=== PATIENT | female | born 2005 | race Caucasian/White ===

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

== ENCOUNTER 2024-01-21 15:55 | Observation (INO) | payer OTHER, SELFPAY ==
--- NOTE | ~2024-01-21 | US_ITS ---
US pelvic complete Ordering provider: Krista Kang PA-C History: . RLQ pain, R ovarian cyst, r/o torsion . Comparison: None. Technique: Transabdominal ultrasound of the pelvis (Doppler ultrasound interrogation techniques used as needed for this exam.) FINDINGS: CERVIX: Normal. UTERUS: Measures 6.7x 4.2x 3.9 cm in length which is within normal limits and is anteverted. No myom etrial masses. ENDOMETRIUM: Normal in thickness measuring 3 mm. No endometrial masses, cysts or fluid. CUL DE SAC: No free fluid. RIGHT OVARY: Normal in size measuring 2.7x 1.7x 1.8 cm. Normal echotexture. Doppler vascular flow pre sent. LEFT OVARY: Not visualized. Minimal fluid is seen around the right ovary. ADNEXA: Normal. No mass. IMPRESSION: Minimal fluid around the right ovary. Nonvisualization of the left ovary. Otherwise, normal pelvic ul trasound. Reviewed, dictated and finalized at location A. IMPRESSION: Minimal fluid around the right ovary. Nonvisualization of the left ovary. Other moran, normal pelvic ultrasound.
--- NOTE | ~2024-01-21 | CT_ITS ---
EXAMINATION: CT abdomen pelvis w con DATE: 01/21/2024 17:24 INDICATION: Right lower quadrant abdominal pain TECHNIQUE: Computed tomography (CT) of the abdomen and pelvis was performed with 100 mL Omnipaque-350 intravenous contrast. Automated exposure control and iterative reconstruction technique were employe d. The dose-length product was 417.02 mGy-cm. COMPARISON: None FINDINGS: Lung bases are clear. Heart size normal. No pericardial or pleural effusion. Liver, gallbladder, sple en, pancreas, bilateral adrenal glands and kidneys are normal. The fluid-filled appendix is dilated t o 9 mm diameter but without evident para appendiceal comparison to more specifically suggest acute ap pendicitis. No bowel obstruction. Bladder, uterus and left adnexa are unremarkable. There is suggesti on of a 2.6 x 1.6 cm peripherally enhancing partially collapsed likely corpus luteum cyst at the righ t ovary. Small amount of free fluid in the cul-de-sac and about the right ovary which could be either physiologic or related to cyst rupture. No abscess or free intraperitoneal gas. No pathologically en larged abdominal or pelvic lymphadenopathy. Mild thoracolumbar levocurvature IMPRESSION: 1. Appendix dilated which raises some concern for acute appendicitis however there is no periappendic eal inflammatory stranding to more specifically suggest this. 2. Likely 2.6 x 1.6 cm peripherally enhancing partially collapsed right ovarian corpus luteum cyst wi th small amount of free fluid in the deep pelvis which could be either physiologic or related to cyst rupture. Reviewed, dictated and finalized at location A. IMPRESSION: 1. Appendix dilated which raises some concern for acute appendicitis however th ere is no periappendiceal inflammatory stranding to more specifically suggest t his. 2. Likely 2.6 x 1.6 cm peripherally enhancing partially collapsed right ovarian corpus luteum cyst with small amount of free fluid in the deep pelvis which co uld be either physiologic or related to cyst rupture.
[2024-01-21 15:57] VITALS: BP 118/60; PULSE 84; RESP 15; TEMP 36.7; O2SAT 100
[2024-01-21 16:44] LABS: Basophils Percent Auto 0.2 % (0.2-1.2); Eosinophils Percent Auto 0.3 % (0-4.4); Hematocrit 41.2 % (37.0-47.0); Hemoglobin 14.6 g/dL (12.0-15.0); Immature Granulocyte Absolute 0.04 K/mm3 (0.00-0.031); Immature Granulocyte Percent A 0.3 % (0-0.5); Lymphocytes Absolute Auto 1.35 K/mm3 (0.9-3.2); Lymphocytes Percent Auto 10.3 % (18.3-44.2); Mean Corpuscular HGB Conc 35.4 g/dl (32-36); Mean Corpuscular Hemoglobin 32.8 pg (26-34); Mean Corpuscular Volume 92.6 fl (80-100); Mean Platelet Volume 10.9 fl (7.4-10.4); Monocytes Absolute Auto 0.8 K/mm3 (0.1-0.6); Neutrophils Absolute Auto 10.9 K/mm3 (1.3-6.7); Neutrophils Percent Auto 82.9 % (45.5-73.1); Platelet Count Result 163 k/mm3 (150-375); Red Blood Count 4.45 M/mm3 (4.2-5.4); Red Cell Distribution Width 12.6 % (11.5-14.5); White Blood Count 13.1 K/mm3 (4.5-10.0)
[2024-01-21 16:47] LABS: Add Urine Microscopic? NO; Appearance Urine Clear (Clear); Bilirubin Urine Negative (Negative); Blood Urine Negative (Negative); Color Urine Yellow (Yellow); Glucose Urine UA Negative (Negative); Ketones Urine 3+ mg/dL (Negative); Leukocyte Esterase Ur Negative LEU/UL (Negative); Nitrate Urine Negative (Negative); Protein Urine Negative (Negative); Specific Grav Ur 1.028 (1.001-1.035); pH Urine 5.5 (5.0-9.0)
--- NOTE | 2024-01-21 16:50 | ED.ABDPAIN ---
HPI - Abdominal Pain General Chief Complaint: Abdominal Pain Stated Complaint: abd pain poss appendicitis Time Seen by Provider: 01/21/24 16:17 Source: patient Mode of arrival: ambulatory Limitations: no limitations History of Present Illness HPI narrative: patient is a 18-year-old female who presents the ED with report of right lower abdominal pain. Patient reports pain began 2 days ago. Has been constant and worsening today, which prompted her to go to [facility]. She was then referred here for further evaluation to rule out appendicitis. Patient has not taken anything for pain. Reports nausea, denies vomiting, diarrhea, constipation, fevers, dysuria, hematuria. Denies hx of ovarian cyst. Related Data Allergies Allergy/AdvReac Type Severity Reaction Status Date / Time amoxicillin Allergy Hives Verified 01/21/24 15:56 cephalexin Allergy Hives Verified 01/21/24 15:56 Penicillins Allergy Hives Verified 01/21/24 15:56 Review of Systems Review of Systems: All systems reviewed & are unremarkable except as noted in HPI. All systems reviewed & are unremarkable except as noted in HPI and below Exam Narrative: GENERAL: Well appearing, well-nourished, non-toxic, in no acute distress. HEAD: Normocephalic, atraumatic. RESPIRATORY: Airway patent, respirations nonlabored. Clear to auscultation bilaterally, no rales, rhonchi, wheezing. CARDIOVASCULAR: Regular rate and rhythm without murmurs, rubs, or gallops. ABDOMINAL: Soft, focal tenderness in RLQ, no rebound. No significant Rovsing sign. Nondistended. Normoactive BS. MUSCULOSKELETAL: Moves all extremities. No gross deformities. SKIN: Warm, dry, normal color. NEURO: A&O X3. Speech clear. PSYCHIATRIC: Appropriate mood and affect. Normal interaction. Course Vital Signs Vital signs: Vital Signs Temperature 98.1 F 01/21/24 15:57 Pulse Rate 84 01/21/24 15:57 Respiratory Rate 15 01/21/24 15:57 Blood Pressure 118/60 01/21/24 15:57 Pulse Oximetry 100 01/21/24 15:57 Oxygen Delivery Room Air 01/21/24 15:57 Temperature 98.1 F 01/21/24 15:57 Pulse Rate 84 01/21/24 15:57 Respiratory Rate 15 01/21/24 15:57 Blood Pressure 118/60 01/21/24 15:57 Pulse Oximetry 100 01/21/24 15:57 Oxygen Delivery Room Air 01/21/24 15:57 MDM - Abdominal Pain MDM Narrative Medical decision making narrative: Patient presented to ED with 2 day history of right lower quadrant abdominal pain, worsening today. [facility] ED [facility] to rule out appendicitis. Vital signs are stable. Patient afebrile. Cbc with white blood cell count of 13.1. Neutrophil predominance. No bandemia. CMP unremarkable, total bili mildly elevated to 2, but otherwise normal LFTs/lipase. UA with at 3+ ketones, no signs of infection. Fluids ongoing. CT scan of abdomen / pelvis was obtained, showing a dilated appendix to 9 mm, however no periappendiceal inflammation/stranding. Does however also show right-sided ovarian cyst with possible rupture. Will obtain ultrasound to further evaluate. Pelvic US obtained and w/o concerning findings, does show minimal fluid around R ovary. No comment on ovarian cysts. Good blood flow to both ovaries. Discussed imaging results with Dr. Carlton, radiology, advised may not have been able to see findings on CT on the US based on its location. CT still consistent with partially collapsed cyst. Discussed case with Dr. Kirk, gen surgery, advised patient can stay overnight for obs, repeat labs in the am, NPO after midnight in case of surgery. Otherwise can d/c home with pain medication, return if pain worsens. Discussed these options with patient. She would prefer to stay overnight to be sure she does not need surgery. Does not feel comfortable going home at this point. Patient admitted under Dr. Kirk. Prn pain medications ordered. Will start abx. Medical Records Attestation: I reviewed the patient's medical record
[2024-01-21 16:53] LABS: Alanine Aminotransferase 12 U/L (6-35); Albumin Level 4.5 g/dL (3.5-5.1); Alkaline Phosphatase 58 U/L (38-126); Anion Gap 11 mmol/L (4-12); Aspartate Amino Transferase 23 U/L (14-36); Blood Urea Nitrogen 13 mg/dL (7-17); Calcium 9.1 mg/dL (8.4-10.2); Carbon Dioxide 22 mmol/L (22-30); Chloride 100 mmol/L (98-107); Estimated CRCL calculation 123 ml/min; Estimated Glomerular Filt Rate > 60; Glucose 82 mg/dL (65-110); Lipase 39 U/L (23-300); Potassium 3.4 mmol/L (3.4-5.0); Sodium 133 mmol/L (137-145)
[2024-01-21] MEDS: SODIUM CHLORIDE 0.9% IV 1,000 ML 999 ML IV CONT (16:58)
[2024-01-21] MEDS: ACETAMINOPHEN 500 MG TABLET 1000 MG PO ×2 (16:58→21:02)
[2024-01-21] MEDS: metroNIDAZOLE 500 MG/ISO 100ML 500 MG/100 ML BAG 100 MG IVPB (19:11)
[2024-01-21] MEDS: levoFLOXacin 750 MG/D5W 150 ML 750 MG/150 ML BAG 100 MG IVPB (19:39)
[2024-01-21 20:00] VITALS: BP 118/55; PULSE 81; RESP 17; TEMP 36.5; O2SAT 100; BMI 28.3
--- NOTE | 2024-01-21 23:30 | ADMGEN ---
This patient, Neelima Pastrana, was admitted to Medical Room 240-. Patient/family oriented to hospital policies and general routines including ID bracelet, bed and alarms, visiting hours, pain management, procedures, bathroom and other care routines, personal items, smoking policy, room service/diet, and visiting hours. Information on how to activate the Rapid Response Team has been discussed. Patient/Family are encouraged to report perceived risks to care and to ask questions if they do not understand what they are told or what they should do.
[2024-01-22] VITALS (10 sets, daily range): BP systolic 103–129; BP diastolic 54–78; PULSE 77–115; RESP 14–18; TEMP 36.3–37; O2SAT 98–100
[2024-01-22 05:46] LABS: Basophils Percent Auto 0.2 % (0.2-1.2); Eosinophils Percent Auto 0.5 % (0-4.4); Hematocrit 41.8 % (37.0-47.0); Hemoglobin 14.2 g/dL (12.0-15.0); Immature Granulocyte Absolute 0.03 K/mm3 (0.00-0.031); Immature Granulocyte Percent A 0.3 % (0-0.5); Lymphocytes Absolute Auto 1.63 K/mm3 (0.9-3.2); Lymphocytes Percent Auto 18.4 % (18.3-44.2); Mean Corpuscular Volume 94.1 fl (80-100); Mean Platelet Volume 11.6 fl (7.4-10.4); Monocytes Absolute Auto 0.7 K/mm3 (0.1-0.6); Monocytes Percent Auto 8.1 % (2.6-8.5); Neutrophils Absolute Auto 6.4 K/mm3 (1.3-6.7); Neutrophils Percent Auto 72.5 % (45.5-73.1); Platelet Count Result 145 k/mm3 (150-375); Red Blood Count 4.44 M/mm3 (4.2-5.4); Red Cell Distribution Width 12.4 % (11.5-14.5); White Blood Count 8.9 K/mm3 (4.5-10.0)
[2024-01-22] MEDS: metroNIDAZOLE 500 MG/ISO 100ML 500 MG/100 ML BAG 100 MG IVPB ×2 (05:47→13:38)
[2024-01-22 06:05] LABS: Anion Gap 10 mmol/L (4-12); Blood Urea Nitrogen 8 mg/dL (7-17); Calcium 9.2 mg/dL (8.4-10.2); Carbon Dioxide 22 mmol/L (22-30); Chloride 103 mmol/L (98-107); Estimated CRCL calculation 121 ml/min; Estimated Glomerular Filt Rate > 60; Glucose 71 mg/dL (65-110); Potassium 3.4 mmol/L (3.4-5.0); Sodium 135 mmol/L (137-145)
--- NOTE | 2024-01-22 10:14 | PM.IMHP ---
H&P: HPI History of Present Illness Date/Time: 01/22/24 10:14 Chief Complaint: Abdominal pain Narrative: This is a 18-year-old woman who presented to the ED for abdominal pain x2 days. She initially noticed cramping and bloating in her upper abdomen 2 days ago. She at first thought she was constipated. Yesterday, her abdominal pain migrated to the right lower quadrant and became more severe. Denies any other associated symptoms. Her persistent pain prompted her to come into the ED for evaluation. The ED, vital signs were stable and she was afebrile. [place] [address] scan of the abdomen and pelvis showed a mildly dilated appendix to 9 mm with no periappendiceal inflammatory stranding. Could be early appendicitis. Also noted on CT was evidence of likely a partially collapsed right ovarian cyst stool with small amount of free fluid in the pelvis that could be due to a ruptured ovarian cyst or physiologic fluid. Pelvic ultrasound showed minimal fluid around the right ovary, nonvisualization of the left ovary. She was admitted for observation and surgical evaluation. She has been started on IV Levaquin and metronidazole due to her penicillin allergy. She reports today her constant pain has improved, but she remains tender in the right lower quadrant with any movement, walking, or bending. Her white blood cell count is down to 9000. No previous abdominal surgeries or significant medical history. Review of Systems Review of Systems: All systems reviewed & are unremarkable except as noted in HPI and below [facility] Family History Family History (Updated 01/21/24 @ 19:41 by Betty Lou RN) Grandparent Myocardial infarct Hypothyroid Diabetes mellitus Bleeding disorder Social History Social History Smoking status: Never smoker Do You Feel Safe in your Home?: Yes Lack of Transportation: No Lack of Food: Never True Current Housing: I Have Housing Concerned About Future Housing: No Difficulty Paying Gas/Electric Bills: No Difficulty Paying for Meds: No Currently Unemployed: No Education: High School Diploma/GED Difficulty w/ Childcare or Family Care: No Spiritual care concerns: No Meds Home Medications and Allergies Home Medications Medication Instructions Recorded Confirmed Type No Home Medications 01/21/24 01/21/24 History Allergies Allergy/AdvReac Type Severity Reaction Status Date / Time amoxicillin Allergy Hives Verified 01/21/24 19:28 cephalexin Allergy Hives Verified 01/21/24 19:28 Penicillins Allergy Hives Verified 01/21/24 19:28 Vital Signs Vital Signs - 24 hr 01/21/24 15:57 01/21/24 20:00 01/22/24 04:30 Temperature 98.1 F 97.7 F 98.6 F Pulse Rate 84 81 88 Respiratory Rate 15 17 17 Blood Pressure 118/60 118/55 L 116/59 L Pulse Oximetry 100 100 100 Oxygen Delivery Room Air 01/22/24 08:00 Temperature Pulse Rate Respiratory Rate Blood Pressure Pulse Oximetry Oxygen Delivery Room Air Exam Const: General: comfortable and no acute distress Nutritional Appearance: average body habitus Orientation/consciousness: patient oriented x3 HENMT: Head: normocephalic and atraumatic Ears: hearing grossly normal bilaterally Mouth: Yes moist mucous membranes Eyes: General: appearance normal, both eyes and all related structures Pupils: Equal, round and reactive pupils present Neck: Neck: normal visual inspection and full ROM Resp: Effort & Inspection: no respiratory distress Auscultation: clear to auscultation bilaterally Cardio: Rate: regular rate Rhythm: regular rhythm Heart sounds: S1 normal heart sound present and S2 normal heart sound present Peripheral pulses: Peripheral pulses 2+ throughout GI: Inspection: non-distended and no scars GI Palp: Yes Soft to palpation, Yes Tenderness to palpation present (GI) (RLQ, pain in RLQ with palpation of LLQ), Yes
[2024-01-22 11:26] LABS: Beta HCG Quantitative < 2.39 mIU/ML
--- NOTE | 2024-01-22 12:56 | WPDHPUPDATE1 ---
History and Physical Update Update Date/Time: 01/22/24 12:56 History and Physical has been reviewed, including an updated exam of the patient. There are NO changes in the patient's condition. Risks, benefits, and alternatives have been discussed and questions answered. Patient agrees to proceed with procedure.
[2024-01-22] MEDS: LACTATED RINGERS 1,000 ML 30 ML IV CONT ×2 (13:20→15:06)
--- NOTE | 2024-01-22 14:21 | WPDANESEPPF ---
Anes - Initial Pre Proc Eval Procedure: Operation Date: 01/22/24 14:00 Proposed Procedures p Laparoscopic Appendectomy - Barbara Kirk MD Date/Time: 01/22/24 14:21 Surgeon: Barbara Kirk MD Pre Op Diagnosis: Appendiceal dilation, RLQ Pain Patient Data Age: 18 Gender: F Height: 1.6 m Weight: 72.5 kg Last Vital Signs Temp 98.6 F 01/22/24 04:30 Pulse 88 01/22/24 04:30 Resp 17 01/22/24 04:30 BP 116/59 L 01/22/24 04:30 Pulse Ox 100 01/22/24 04:30 O2 Del Method Room Air 01/22/24 08:00 Allergies Allergy/AdvReac Type Severity Reaction Status Date / Time amoxicillin Allergy Hives Verified 01/22/24 13:41 cephalexin Allergy Hives Verified 01/22/24 13:41 Penicillins Allergy Hives Verified 01/22/24 13:41 Home Medications Medication Instructions Recorded Confirmed Type hydrocodone 5 mg-acetaminophen 325 1 tablet PO Q6H PRN pain #20 tabs 01/22/24 Rx mg tablet Laboratory Tests 01/21/24 01/22/24 16:38 04:56 WBC 13.1 H K/mm3 8.9 K/mm3 (4.5-10.0) (4.5-10.0) RBC 4.45 M/mm3 4.44 M/mm3 (4.2-5.4) (4.2-5.4) Hgb 14.6 g/dL 14.2 g/dL (12.0-15.0) (12.0-15.0) Hct 41.2 % 41.8 % (37.0-47.0) (37.0-47.0) MCV 92.6 fl 94.1 fl (80-100) (80-100) MCH 32.8 pg 32.0 pg (26-34) (26-34) MCHC 35.4 g/dl 34.0 g/dl (32-36) (32-36) RDW 12.6 % 12.4 % (11.5-14.5) (11.5-14.5) Plt Count 163 k/mm3 145 L k/mm3 (150-375) (150-375) MPV 10.9 H fl 11.6 H fl (7.4-10.4) (7.4-10.4) Immature Gran % (Auto) 0.3 % 0.3 % (0-0.5) (0-0.5) Neut % (Auto) 82.9 H % 72.5 % (45.5-73.1) (45.5-73.1) Lymph % (Auto) 10.3 L % 18.4 % (18.3-44.2) (18.3-44.2) Murray % (Auto) 6.0 % 8.1 % (2.6-8.5) (2.6-8.5) Eos % (Auto) 0.3 % 0.5 % (0-4.4) (0-4.4) Baso % (Auto) 0.2 % 0.2 % (0.2-1.2) (0.2-1.2) Lymph # (Auto) 1.35 K/mm3 1.63 K/mm3 (0.9-3.2) (0.9-3.2) Murray # (Auto) 0.8 H K/mm3 0.7 H K/mm3 (0.1-0.6) (0.1-0.6) Eos # (Auto) 0.0 K/mm3 0.0 K/mm3 (0-0.3) (0-0.3) Baso # (Auto) 0.0 K/mm3 0.0 K/mm3 (0.0-0.1) (0.0-0.1) Abs Immat Gran (auto) 0.04 H K/mm3 0.03 K/mm3 (0.00-0.031) (0.00-0.031) Absolute Neuts (auto) 10.9 H K/mm3 6.4 K/mm3 (1.3-6.7) (1.3-6.7) Absolute Nucleated RBC 0.000 K/mm3 0.000 K/mm3 (0.0-0.012) (0.0-0.012) Nucleated RBC % 0.0 % 0.0 % (0.0-0.2) (0.0-0.2) Sodium 133 L mmol/L 135 L mmol/L (137-145) (137-145) Potassium 3.4 mmol/L 3.4 mmol/L (3.4-5.0) (3.4-5.0) Chloride 100 mmol/L 103 mmol/L (98-107) (98-107) Carbon Dioxide 22 mmol/L 22 mmol/L (22-30) (22-30) Anion Gap 11 mmol/L 10 mmol/L (4-12) (4-12) BUN 13 mg/dL 8 D mg/dL (7-17) (7-17) Creatinine 0.60 L mg/dL 0.60 L mg/dL (0.7-1.0) (0.7-1.0) Estim Creat Clear Calc 123 ml/min 121 ml/min Estimated GFR > 60 > 60 (59 - ) (59 - ) Glucose 82 mg/dL 71 mg/dL (65-110) (65-110) Calcium 9.1 mg/dL 9.2 mg/dL (8.4-10.2) (8.4-10.2) Total Bilirubin 2.0 H mg/dL (0.2-1.3) AST 23 U/L (14-36) ALT 12 U/L (6-35) Alkaline Phosphatase 58 U/L (38-126) Total Protein 7.0 g/dL (6.3-8.2) Albumin 4.5 g/dL (3.5-5.1) Lipase 39 U/L (23-300) Beta HCG, Quant < 2.39 mIU/ML Urine Color Yellow (Yellow) Urine Appearance Clear (Clear) Urine pH 5.5 (5.0-9.0) Ur Specific Craig 1.028 (1.001-1.035) Urine Protein Negative mg/dL (Negative) Urine Glucose (UA) Negative mg/dL (Negative) Urine Ketones 3+ H mg/dL (Negative) Ur Blood (Man) Negative (Negative) Urine Nitrate Negative (Negative) Urine Bilirubin Negative (Negative) Urine Urobilinogen 1.0 mg/dL (<2.0) Leukocyte Esterase Rfl Negative MONIQUE/UL (Negative) Blood Type O Positive Antibody S
[2024-01-22] MEDS: BUPIVACAINE/EPINEPHRINE 0.5% 50 ML VIAL 30 ML INFILTRATE (14:45)
--- NOTE | 2024-01-22 15:01 | W.PM.PROC2 ---
Procedure Note - Detailed Date of Procedure 01/22/24 Pre-op Diagnosis acute appendicitis Post-op Diagnosis Same Procedure Performed laparoscopic appendectomy Surgeon Barbara Kirk MD Anesthesia General Indications 18-year-old female presenting to the emergency department complaining of right lower quadrant abdominal pain. Workup, including imaging, consistent with early acute appendicitis. Findings acute appendicitis no evidence of perforation Description of Procedure The patient was taken to the operating room and placed in the supine position. After adequate induction of general anesthesia, the patient was prepped and draped in the normal sterile fashion. A time-out was then done to verify the patient's identity, as well as the procedure being performed. I began by making a 5 mm incision in the infraumbilical region, through this a Veress needle was placed in the peritoneal cavity. CO2 gas was then insufflated and after adequate pneumoperitoneum was achieved the Veress needle was removed. Then placed a 5 mm Optiview trocar under direct visualization into the peritoneal cavity. I then insufflated through this trocar site and the endoscope was placed into the trocar. Under direct visualization, placed 2 further 5 mm suprapubic port as well as an additional 12 mm port in the left lower abdomen. At this point identified the cecum, I retracted the cecum both medially and superiorly allowing me to expose the appendix. The appendix was noted to be dilated and inflamed. I then was able to locate the base of the appendix with the cecum. I created a window with the [place] dissector between the appendix itself and the mesoappendix. I then transected the mesoappendix with a white vascular staple load. The Endo-MARIE was then reloaded with a blue staple load and I transected the base of the appendix. Once the specimen was completely detached, an endo-pouch was placed into the 12 mm port site and the specimen was removed through the endo-pouch. The appendiceal specimen will be sent to pathology for further review. I then copiously irrigated the right lower quadrant. There was noted to be some free fluid in the pelvis that was suctioned away. The right ovary looked to be largely unremarkable. Hemostasis was noted at both staple lines no other pathology was seen in this area. I then moved the camera to the suprapubic port to check our its port of entry. No iatrogenic injury or other pathology was noted in the upper abdomen. I then closed the 12 mm port site with a Lee code and 0 Vicryl suture under direct visualization. At this point, the abdomen was desufflated and all ports were removed. All port sites were closed with 4 Monocryl subcuticular suture. Dermabond was placed on all wounds. The patient tolerated the procedure well and was extubated in the operating room postop. She will be sent to the recovery room in stable condition. Estimated Blood Loss 5 Drains No Packing No Pathology Yes Complications No immediate complications Condition Stable Disposition PACU [facility] Billing Surgery - Charge Forward: Surgery Billing
[2024-01-22] MEDS: fentaNYL CITRATE INJ (*CRX) 100 MCG/2 ML VIAL 25 MCG IV PUSH ×5 (15:21→16:09)
[2024-01-22] MEDS: ACETAMINOPHEN 500 MG TABLET 1000 MG PO (18:17)
--- NOTE | 2024-01-23 08:30 | PM.DS ---
DS: Admitting Diagnosis Discharge Date 01/22/24 Admitting Diagnosis Acute appendicitis DS: Discharge Diagnosis Discharge Diagnosis (1) Acute appendicitis with localized peritonitis, without perforation or abscess: Code(s): K35.30 - Acute appendicitis with localized peritonitis, without perforation or gangrene Status: Acute Assessment and Plan: status post appendectomy, doing well, home with routine postoperative care and p.o. analgesia, follow-up 2 weeks DS: Summary Hospital Course Reason for hospitalization: acute appendicitis Hospital Course: The patient is a 18-year-old female presenting to the emergency department complaining of right lower quadrant abdominal pain. Workup, including imaging, was significant acute appendicitis. Given these findings, the patient was admitted to surgical service. She was made NPO and started on IV antibiotics. Upon evaluation, the decision was made to proceed with urgent appendectomy. The patient was taken to the operating room and laparoscopic appendectomy was performed. Please see full operative report for details of that procedure. Postoperatively, the patient did well and was transferred back to the surgical floor. She was able to tolerate a diet and her pain was well controlled with p.o. analgesia. She was up and ambulating without difficulty. At this time she will be sent home with routine postoperative instructions and p.o. analgesia, as well as Colace. She will follow-up me in 2 weeks. Status at Discharge Functional status at discharge: independent ambulation Overall status at discharge: patient is progressing back to baseline Time Spent with Patient Time attestation: Total time spent providing and/or coordinating discharge services: Time spent: Less than 30 minutes Exam Const: General: cooperative, comfortable and no acute distress Resp: Auscultation: clear to auscultation bilaterally Cardio: Rate: regular rate Rhythm: regular rhythm GI: Inspection: normal to inspection, distended and incision GI Palp: Yes abdominal tenderness and Yes Soft to palpation DS: Data Data Completed and Pending Pending studies at discharge: Pending at discharge 01/22/24 14:56 Surgical [PTH] Routine Labs on day of discharge: Labs from last 24 hours 01/22/24 04:56 Beta HCG, Quant < 2.39 Discharge Plan Discharge Attending physician on discharge: Barbara Kirk Consulting providers: Cristhian Salazar; Judie Ware; Derek Carlton; Olayinka Mendez; Khari Echeverria Discharging Clinician: Barbara Kirk Patient Disposition: Home, Self-Care Activity: as tolerated Diet: as tolerated Wound Care Instructions: incision open to air Discharge Instructions: DISCHARGE INSTRUCTION SHEET FOR HERNIA, GALLBLADDER AND APPENDIX SURGERIES DR. KIRK PATIENT TO TAKE HOME 1. May shower in 24 hours, no soaking in bath x 2weeks. 2. Call office for: Wound increasingly painful or bleeding Vomiting Fever of greater than 101 degrees 3. If no bowel movement for three days, take 1 oz. (30 ml) Milk of Magnesia or MiraLax 17g 1 to 2 times daily. 4. No heavy lifting > 10-15 pounds x 6 weeks for hernia repairs and 2 weeks for laparoscopic cholecystectomy or appendectomy. 5. No driving for 3 days or while taking narcotic pain medications. 6. Ice to surgical site for 48 hours (30 min on, then 30 min off). 7. Up walking 10-30 minutes three times per day. 8. Resume previous home medications. 9. Follow-up 10-14 days in office for wound check or as previously scheduled. ([phone]) 10. Oral pain medications prescription to be sent to pharmacy. Take Tylenol 500mg every 6 hours and Ibuprofen 600mg every 6 hours for the first 2 days, then as needed. 11. NUTRITION: Start out by drinking fluids and increase your diet as tolerated. If you experience nausea, try dry toast,
== END 2024-01-22 18:43 | disposition home or self-care (01) ==
LOC: ANHED 19:02 → ANH2MED 19:44
PROVIDERS: Anesthesiology; Admitting Provider Surgery; Emergency Provider Physician Assistant; Visit Provider Surgery
PROC: 0DTJ4ZZ Resection of Appendix, Percutaneous Endoscopic Approach (ICD-10-PCS; CPT 44970; principal; 2024-01-22 14:00)
DX: K35.80 Unspecified acute appendicitis (principal); N83.11 Corpus luteum cyst of right ovary; R93.5 Abnormal findings on diagnostic imaging of other abdominal regions, including retroperitoneum
CPT/HCPCS: 44970; 36415; 74177; 76856; 80048; 80053; 81003; 83690; 84702; 85025; 86850; 86900; 86901; 88304; 96361; 96365; 96366; 96367; 99285; A9270; G0378; J1100; J1836; J1956; J2250; J2405; J2704; J3010; J7030; J7120; Q9967

== ENCOUNTER 2025-01-03 11:44 | Emergency (ER) | payer OTHER, SELFPAY ==
--- OUTSIDE RECORDS SUMMARY | 2020-01-13 09:00 | XMS_ITS | Continuity of Care Document ---
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 Name Role Phone Marycruz Linarse Unavailable Unavailable Allergies, Adverse Reactions, Alerts Substance Reaction Status Criticality No Known Allergies Active No Inform ation Medications Medication Instructions Dosage Effective Dates (start - stop) Status Comments Sprintec (28) 0.25 mg-35 mcg tablet take 1 tablet by oral route every day 1.00 tablet - Active Procedures Procedure Date VISUAL ACUITY SCREEN OFFICE/OUTPATIENT VISIT, EST TOBACCO NON-USER SYST BP LT 130 MM HG Sys bp less 140 DIAST BP < 80 MM HG Perez bp less 90 WEIGHT RECORDED BODY MASS INDEX DOCD Sealant Per Tooth Sealant Per Tooth Sealant Per Tooth Sealant Per Tooth Sealant Per Tooth Prophylaxis Child Topical Application Of Flouride 016 Prophylaxis Child Topical Fluoride Varnish; Therapeutic Ap plication Periodic Oral Evaluation Established Patient Bitewings Two Films Unable To Treat Non-Billable Services Limit Oral Eval-prob Focused Intraoral Periapical First Darrell 11 Advance Directives Directive Yes / No Effective Date File Name No Information Encounters Encounter Description Practice Location Reason(s) For Visit Diagnoses Date Provider Providers Copied on Encounter OFFICE/OUTPA TIENT VISIT, EST [facility], [address], [place], [place], [address], tel:[phone] [facility] sports physical (chief complaint) Sports physicalFamily planning 0 Linares Marycruz. [address] [place], [address], [place]. tel:[phone] Referring Provider: Marycruz Linares, [address], [place], [facility]. tel:[phone] [facility], [address], [place], [place], [address], tel:[phone] [facility] Dental sealant status 6 Jannet Kessler. [address], [place], [place], [address], [place]. tel:[phone] Referring Provider: Checo Garcia, [address], [place], [address] . tel:[phone] [facility], [address], [place], [place], [address], tel:[phone] [facility] DEN-Disturbance s in tooth formation 6 Jannet Kessler. [address], [place], [place], [address], [place]. tel:[phone] Referring Provider: Checo Garcia, [address], [place], [address] . tel:[phone] [facility], [address], [place], [place], [address], tel:[phone] [facility] DEN-Deposits [accretions] on teeth 6 Jannet Kessler. [address], [place], [place], [address], [place]. tel:[phone] Referring Provider: Checo Garcia, [address], [place], [address] . tel:[phone] [facility] [facility], [address], [place], [place], [address], tel:[phone] [facility] DEN-Deposits [accretions] on teeth 5 Jannet Kessler. [address], [place], [place], [address], [place]. tel:[phone] Referring Provider: Checo Garcia, [address], [place], [address] . tel:[phone] [facility] [facility], [address], [place], [place], [address], tel:[phone] [facility] DEN-Encounter for dental exam and cleaning w abnormal findings 5 Jannet Kessler. [address], [place], [place], [address], [place]. tel:[phone] Referring Provider: Checo Garcia, [address], [place], [address] . tel:[phone] [facility] [facility], [address], [place], [place], [address], [place] tel:[phone] [facility] Dental examination 0 Rafita Claudio. [address], [place], [place], [address], [place]. tel:[phone] Referring Provider: Shanon Nelson, [address], [place], [address] . tel:[phone] [facility] [facility], [address], [place], [place], [address], tel:[phone] [facility] Dental examination b0 1 No Information Family History Family Member Type Diagnosis Age At Onset No Information Payers Payer name Insurance type Covered constitution party ID Scot akins(s) [facility] [id number] Social History Type Description Quantity Date Captured Comments Alcohol Use Details No Caffeine Use Details soda > 32oz per day Tobacco Use Status Current non-smoker Smoking Status Never smoker Non-Smoking Tobacco Use Details : No Details Available : No Details Available Sex Female Vital Signs Date / Time: Height Weight BMI Pulse Rate Blood Pressure Temperature Respiratory Rate Body Surface Area Head Circumference Head Circ. Percentile Wt./Lux. Percentile BMI percentile Pulse Ox Inhaled Ox 2:44 PM 63.00 in 66.224 kg (146.00 lbs) 25.8 6 kg/m eter (2) 102 /min 100/70 mm[Hg] 97.80 F 18 /min 87 98 % 21 % Chief Complaint And Reason For Visit From encounter dated '01/13/2020 14:00'. needs sports physical (chief complaint) Reason For Referral Reason For Referral No Information History Of Present Illness Encounter Date Complaint History Of Prese nt Illness needs sports physical needs sports physical (comments) has no problems states she plays sports every year. She denies being sexually active but is wanting to try control pill she does not want the shot because she has heard it makes you gain weight. Functional Status Date Functional Assessmen t Pain Score 0/10 Instructions Date Instruction Additional Infor meagan Exam done and form c ompleted Age related routine screening and safety reviewed. Related to Sports physical Medication instructi ons were provided to the patient. The risks, benefits and side effects of treatment were discussed with the patient. The patient verbalized an understanding of all instructions. Related to Family planning Assessments Type Assessment Date assessment Sports physical assessment Family planning Patient Care Teams Name Effective Dates (start - stop) Status Members No Information
--- OUTSIDE RECORDS SUMMARY | 2020-01-13 09:00 | XMS_ITS | Continuity of Care Document ---
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 [address] [place], [address], [place]. tel:[phone] Referring Provider: Marycruz Linares, [address] [place], [place], [facility]. tel:[phone] [facility], [address], [place], [place], [address], tel:[phone] [facility] Dental sealant status 6 Jannet Kessler. [address], [place], [place], [address], [place]. tel:[phone] Referring Provider: Checo Garcia, [address], [place], [address] . tel:[phone] [facility], [address], [place], [place], [address], tel:[phone] [facility] DEN-Disturbance s in tooth formation 6 Jannet Kessler. [address], [place], [place], [address], [place]. tel:[phone] Referring Provider: Checo Garcia, [address], [place], [address] . tel:[phone] [facility], [address], [place], [place], [address], tel:[phone] [facility] DEN-Deposits [accretions] on teeth 6 Jannet Kessler. [address], [place], [place], [address], [place]. tel:[phone] Referring Provider: Checo Garcia, [address], [place], [address] . tel:[phone] [facility] [employer] [facility], [address], [place], [place], [address], tel:[phone] [facility] DEN-Deposits [accretions] on teeth 5 Jannet Kessler. [address], [place], [place], [address], [place]. tel:[phone] Referring Provider: Checo Garcia, [address], [place], [address] . tel:[phone] [facility] [facility], [address], [place], [place], [address], tel:[phone] [facility] DEN-Encounter for dental exam and cleaning w abnormal findings 5 Jannet Kessler. [address], [place], [place], [address], [place]. tel:[phone] Referring Provider: Checo Garcia, [address], [place], [address] . tel:[phone] [facility] [employer] [facility], [address], [place], [place], [address], [place] tel:[phone] [facility] Dental examination 0 Rafita Claudio. [address], [place], [place], [address], [place]. tel:[phone] Referring Provider: Shanon Nelson, [address], [place], [address] . tel:[phone] [facility] [facility], [address], [place], [place], [address], tel:[phone] [facility] Dental examination b0 1 No Information Family History Family Member Type Diagnosis Age At Onset No Information Payers Payer name Insurance type Covered green party ID Scot akins(s) [facility] [id number] Social History Type Description Quantity Date Captured [...]
--- OUTSIDE RECORDS SUMMARY | 2025-01-02 16:15 | XMS_ITS | Encounter Summary ---
Author Organization [facility] Healthcare Address [address] [place] [address] Care Team Providers Care Mailer Name Role Phone Unknown, Notinfile Primary Care Provider Unavail able Reason for Visit * Reason Comments Sore Throat X 3 days, hurts on t he right side, of her throat, headaches on and off, Encounter Details Date Type Department Care Team (Late st Contact Info) Description 01/02/2025 4:15 PM CDT Office Visit [facility] at [address] [phone] Temitope Preston, PHYSIOLOGIST [address] [place] [address] [address] [place], [place] [id number] Exudative pharyngitis (Primary Dx) Social History Tobacco Use Types Packs/Day Years Used Date Smoking Tobacco: Never Assessed Comments Unknown Sex and Gender Information Value Date Recorded Sex Assigned at Not on file Legal Sex Female 3:44 PM CDT Gender Identity Not on file Sexual Orientation Not on file documented as of this encounter Last Filed Vital Signs Vital Sign Reading Time Taken Comments Blood Pressure 116/73 01/02/2025 4:27 PM CDT Pulse 95 01/02/2025 4:27 PM CDT Temperature 36.8 C (98.3 F) 01/02/2025 4:27 PM CDT Respiratory Rate 16 01/02/2025 4:27 PM CDT Oxygen Saturation 98% 01/02/2025 4:27 PM CDT Inhaled Oxygen Concentration - - Weight 76.2 kg (168 lb) 01/02/2025 4:27 PM CDT Height 160 cm (5' 3) 01/02/2025 4:27 PM CDT Body Mass Index 29.76 01/02/2025 4:27 PM CDT documented in this encounter Patient Instructions * Patient Instructions* Temitope Preston, PHYSIOLOGIST - 01/02/2025 4:15 PM CDT If you have no improvement or worsening of your symptoms, please follow up with your Primary Care Provider, [facility] and or Emergency Room. I strive to provide you with EXCELLENT service. You may receive a survey after your visit today. If you cannot rate your experience as EXCELLENT, please let us know how we can improve and better meet your needs. Thank you for choosing [facility]! It was my pleasure to see you today, I hope you feel better soon! Temitope Preston LOGISTICIAN You have tested negative for strep on rapid testing A Culture may have been sent to the lab- if positive, antibiotics will be ordered. Pharyngitis: A sore throat can be caused by an infection from a virus or bacteria. Sore throat can also be caused by postnasal drip, allergies, and exposure to smoke. The provider will sometimes test the throat with a swab looking for strep bacteria (???strep throat?? ). A sore throat caused by strep will require treatment with an antibiotic. Even if children start feeling better in 24 to 48 hours, complete the entire antibiotic duration recommended by your provider. A viral sore throat lasts up to 5 days and cannot be treated by antibiotics. Another type of sore throat virus, infectious mononucleosis (???mono?? ), can last for 3 weeks in older children. The germs that cause these infections are contagious and can be spread by coughing or sharing drinks or utensils. Medication Recommendations: Give acetaminophen (Tylenol) or ibuprofen (Motrin, Advil) for fever or pain. If post nasal drip, add Zyrtec/Claritin & Flonase. Home Recommendations: Stay hydrated Ice cream/popsicles to improve eating/drinking. This is cold, is soothing, and tastes good. Some patients prefer warm liquids such as soups or broths. Warm salt water gargles for throat irritation 3-4 times a day. Do not share food, drinks, or utensils Frequent hand washing. Follow up with your PCP if you are not getting better. Go to ER if you develop: Drooling or difficulty swallowing occurs. Stiff or swollen neck occurs. Difficulty breathing occurs. Prescribed medicines can't be taken. Rash or swelling occurs after starting use of a new medicine. Fever lasts for more than 2 days. If your voice becomes muffled. Dehydration or decreased Urine Output, very dry mouth or no tears when crying. You may return to work, daycare, or school 24 hours after you are fever free without fever reducingmedications (Tylenol/Motrin). * Attachments The following attachments cannot be sent through Care Everywhere. * Pharyngitis (AfterCare(R) Instructions(ER/ED)) (Greek) documented in this encounter Ordered Prescriptions Prescription Sig Dispense Quantity Refills Last Filled Start Date End Date lidocaine viscous (XYLOCAINE) 2 % solutionIndication s:Exudative pharyngitis Apply 10 mL to the mouth or throat every 6 (six) hours as needed (sore throat) May mix with 30 ml of Mylanta 100 mL 01/02/2025 azithromycin (ZITHROMAX) 250 mg tabletIndications: Exudative pharyngitis Take 2 tabs (500 mg) by mouth today, than 1 tab (250 mg) daily for 4 days. 6 tablet 01/02/2025 5 documented in this encounter Progress Notes * Temitope Preston NP - 01/02/2025 4:15 PM CDT Images from the original note were not included. Subjective/Objective Patient ID: Neelima Pastrana is a 19 y.o. female. This patient has verbally consented to recording this visit in order to utilize AI technology in generating this note. Chief Complaint Sore Throat (X 3 days, hurts on the right side, of her throat, headaches on and off, ) History of Present Illness Neelima Pastrana is a 19 year old female who presents with a sore throat and headache. She has had a sore throat for three days, primarily affecting the right tonsil, with intermittent headaches. There is no fever. She experiences a sensation of a blocked ear, which she associates withher tonsil issue. She has not been exposed to anyone who is sick and has no known exposure to mononucleosis. Her medical history includes allergies to amoxicillin, penicillin, and Keflex. Azithromycin causes chest discomfort, and she is unsure of other antibiotics she has tolerated well in the past. Review of Systems All other systems reviewed and are negative. Physical Exam HEENT: Ears normal. Tonsils with exudate and erythema. Physical Exam Constitutional: Appearance: Normal appearance. She is normal weight. She is not ill-appearing. HENT: Head: Normocephalic. Right Ear: Tympanic membrane, ear canal and external ear normal. Left Ear: Tympanic membrane, ear canal and external ear normal. Nose: Nose normal. Mouth/Throat: Mouth: Mucous membranes are moist. Pharynx: Posterior oropharyngeal erythema present. Tonsils: Tonsillar exudate present. 1+ on the right. 1+ on the left. Eyes: Pupils: Pupils are equal, round, and reactive to light. Cardiovascular: Rate and Rhythm: Normal rate and regular rhythm. Pulses: Normal pulses. Heart sounds: Normal heart sounds. Pulmonary: Effort: Pulmonary effort is normal. Breath sounds: Normal breath sounds. Musculoskeletal: General: Normal range of motion. Cervical back: Normal range of motion. Skin: General: Skin is warm and dry. Capillary Refill: Capillary refill takes less than 2 seconds. Neurological: General: No focal deficit present. Mental Status: She is alert and oriented to person, place, and time. Mental status is at baseline. Psychiatric: Mood and Affect: Mood normal. Behavior: Behavior normal. Thought Content: Thought content normal. Judgment: Judgment normal. Vitals: 01/02/25 1627 BP: 116/73 Pulse: 95 Resp: 16 Temp: 36.8 ??C (98.3 ??F) SpO2: 98% Weight: 76.2 kg (168 lb) Height: 160 cm (5' 3) No results found. No past medical history on file. Current Outpatient Medications: azithromycin (ZITHROMAX) 250 mg tablet, Take 2 tabs (500 mg) by mouth today, than 1 tab (250 mg) daily for 4 days., Disp: 6 tablet, Rfl: 0 lidocaine viscous (XYLOCAINE) 2 % solution, Apply 10 mL to the mouth or throat every 6 (six) hours as needed (sore throat) May mix with 30 ml of Mylanta, Disp: 100 mL, Rfl: 0 Allergies Allergen Reactions Amoxicillin Hives Cephalexin Rash Penicillins Rash Social History Tobacco Use Smoking status: Not on file Smokeless tobacco: Not on file Substance and Sexual Activity Drug use: Not on file Sexual activity: Not on file Alcohol Use: Not At Risk (10/14/2023) Received from [facility] Alcohol Use Frequency of Alcohol Consumption: Not on file Average Number of Drinks: Not on file Frequency of Binge Drinking: Not on file Alcohol Use Status: No Average alcohol consumption: Not on file No past surgical history on file. Procedures Assessment/Plan Results Recent Results (from the past 4 hours) POCT rapid strep A Collection Time: 01/02/25 4:28 PM Result Value Ref Range Rapid Strep A, POC Negative Negative Assessment & Plan Acute pharyngitis Acute pharyngitis with high suspicion for streptococcal infection despite negative rapid strep test. Bacterial etiology suspected based on Centor criteria. - Send throat culture to confirm bacterial infection. - Prescribe azithromycin (Z-Richard) due to allergy to amoxicillin, penicillin, and cephalexin. - Prescribe viscous lidocaine for throat pain, recommend mixing with Mylanta. - Provide work note for absence. Diagnoses and all orders for this visit: Exudative pharyngitis (Primary) - POCT rapid strep A - azithromycin (ZITHROMAX) 250 mg tablet; Take 2 tabs (500 mg) by mouth today, than 1 tab (250 mg) daily for 4 days. - Throat culture Throat; Future - lidocaine viscous (XYLOCAINE) 2 % solution; Apply 10 mL to the mouth or throat every 6 (six) hours as needed (sore throat) May mix with 30 ml of Mylanta 1710- Patient called back reporting she is concerned that Azithromycin has given her chest pain before. Discussed risks of C.diff with patient regarding Clindamycin. Patient will hold the Azithromycin until throat culture returns. Disposition Treatment plan including expectations, follow up, and return precautions discussed with patient/parent, verbalizes understanding. Medication dosage, use, and potential adverse reactions discussed with patient/parent. Advised to follow up with PCP if symptoms do not resolve as expected or sooner if condition worsens. Signs/symptoms warranting ER evaluation reviewed. Patient and/or guardian was given an opportunity to ask questions, questions answered. Temitope Preston NP documented in this encounter Plan of Treatment Pending Results Name Type Priority Associated Diagnoses Date /Time Throat culture Throat Microbiology Routine Exudative pharyngitis 01/02/2025 7:15 PM CDT Scheduled Orders Name Type Priority Associated Diagnoses Orde r Schedule Throat culture Throat Microbiology Routine Exudative pharyngitis Expected: 01/02/2025, Expires: 01/02/2026 documented as of this encounter Procedures Procedure Name Priority Date/Time Associated Diagnosis Comments POCT RAPID STREP Routine 01/02/2025 4:28 PM CDT Exudative pharyngitis documented in this encounter Results * POCT rapid strep A (01/02/2025 4:28 PM CDT) Rapid Strep A, POC Negative Negative Swab 01/02/2025 4:28 PM CDT Temitope Preston NP POINT OF CARE TEST ORDERAB LES Final Result documented in this encounter Visit Diagnoses Diagnosis Exudative pharyngitis- Primary documented in this encounter Care Teams Mailer Relationship Specialty Start Date End Date Unknown, Notinfile PCP - General 10/07/23 documented as of this encounter
--- OUTSIDE RECORDS SUMMARY | 2025-01-02 16:15 | XMS_ITS | Encounter Summary ---
Author Organization [facility] Healthcare Address [address] [place] [address] Care Team Providers Care Doctor Osteopathic Name Role Phone Unknown, Notinfile Primary Care Provider Unavail able Reason for Visit * Reason Comments Sore Throat X 3 days, hurts on t he right side, of her throat, headaches on and off, Encounter Details Date Type Department Care Team (Late st Contact Info) Description 01/02/2025 4:15 PM CDT Office Visit [facility] at [address] [phone] Temitope Preston, LANDING SIGNAL OFFICER [address] [place] [address] [address] [place], [place] [id number] Exudative pharyngitis (Primary Dx) Social History Tobacco [...] Patient Instructions * Patient Instructions* Temitope Preston, LANDING SIGNAL OFFICER - 01/02/2025 4:15 PM CDT If you have no improvement or worsening of your symptoms, please follow up with your Primary Care Provider, [facility] and or Emergency Room. I strive to provide you with EXCELLENT service. You may receive a survey after your visit today. If you cannot rate your experience as EXCELLENT, please let us know how we can improve and better meet your needs. Thank you for choosing [facility]! It was my pleasure to see you today, I hope you feel better soon! Temitope Preston PERSONAL FINANCIAL ADVISOR You have tested negative for strep on [...] through Care Everywhere. * Pharyngitis (AfterCare(R) Instructions(ER/ED)) (Urdu) documented in this encounter Ordered Prescriptions Prescription [...] Use: Not At Risk (10/14/2023) Received from [facility] Alcohol Use Frequency of Alcohol Consumption: Not [...] Primary documented in this encounter Care Teams Doctor Osteopathic Relationship Specialty Start Date End Date Unknown, Notinfile PCP - General 10/07/23 documented as of this encounter
--- OUTSIDE RECORDS SUMMARY | 2025-01-02 19:15 | XMS_ITS | Encounter Summary ---
Author Organization [facility] Healthcare Address [address] [place] [id number] Care Team Providers Care Relationship Counselor Name Role Phone Unknown, Notinfile Primary Care Provider Unavail able Encounter Details Date Type Department Care Team (Latest Contact Info) Description 01/02/2025 7:15 PM CDT - 01/02/2025 11:59 PM CDT Hospital Encounter [address] [address] Exudative pharyngitis Discharge Disposition: Discharge to home or self care Social History Tobacco Use Types Packs/Day Years Used Date Smoking Tobacco: Never Assessed Comments Unknown Sex and Gender Information Value Date Recorded Sex Assigned at Not on file Legal Sex Female 3:44 PM CDT Gender Identity Not on file Sexual Orientation Not on file documented as of this encounter Medications at Time of Discharge azithromycin (ZITHROMAX) 250 mg tabletIndications :Exudative pharyngitis Take 2 tabs (500 mg) by mouth today, than 1 tab (250 mg) daily for 4 days. 6 tablet 01/02/2025 01/07/2025 lidocaine viscous (XYLOCAINE) 2 % solutionIndicatio ns:Exudative pharyngitis Apply 10 mL to the mouth or throat every 6 (six) hours as needed (sore throat) May mix with 30 ml of Mylanta 100 mL 01/02/2025 documented as of this encounter Discharge Disposition Disposition Code Departure Means Destination Discharge to home or self care documented in this encounter Plan of Treatment Pending Results Name Type Priority Associated Diagnoses Date /Time Throat culture Throat Microbiology Routine Exudative pharyngitis 01/02/2025 7:15 PM CDT Scheduled Orders Name Type Priority Associated Diagnoses Orde r Schedule Throat culture Throat Microbiology Routine Exudative pharyngitis Once for 1 Occurrences starting 01/02/2025 until 01/02/2025 documented as of this encounter Visit Diagnoses Diagnosis Exudative pharyngitis documented in this encounter Care Teams Relationship Counselor Relationship Specialty Start Date End Date Unknown, Notinfile PCP - General 10/07/23 documented as of this encounter
--- OUTSIDE RECORDS SUMMARY | 2025-01-02 19:15 | XMS_ITS | Encounter Summary ---
Author Organization [facility] Healthcare Address [address] [place] [id number] Care Team Providers Care School Principal Name Role Phone Unknown, Notinfile Primary Care Provider Unavail able Encounter Details Date Type Department Care Team (Latest Contact Info) Description 01/02/2025 7:15 PM CDT - 01/02/2025 11:59 PM CDT Hospital Encounter [address] [address] Exudative pharyngitis Discharge Disposition: Discharge to home [...] pharyngitis documented in this encounter Care Teams School Principal Relationship Specialty Start Date End Date Unknown, Notinfile PCP - General 10/07/23 documented as of this encounter
--- OUTSIDE RECORDS SUMMARY | 2025-01-03 11:45 | XMS_ITS | Clinical Summary ---
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 6 tablet 01/02/2025 01/08/20 25 Active lidocaine viscous (XYLOCAINE) 2 % solutionIndicati ons:Exudative pharyngitis Apply 10 mL to the mouth or throat every 6 (six) hours as needed (sore throat) May mix with 30 ml of Mylanta 100 mL 01/02/2025 Active Active Problems No known active problems Encounters Date Type Department Care Team Description 01/02/2025 7:15 PM CDT - 01/02/2025 11:59 PM CDT Hospital Encounter [address] [address] Exudative pharyngitis Discharge Disposition: Discharge to home or self care 01/02/2025 4:15 PM CDT Office Visit [facility] at [address] [phone] Temitope Preston NP Exudative pharyngitis (Primary Dx) from Last 3 Months Social History Tobacco Use Types Packs/Day Years Used Date Smoking Tobacco: Never Assessed Comments Unknown Sex and Gender Information Value Date Recorded Sex Assigned at Not on file Legal Sex Female 3:44 PM CDT Gender Identity Not on file Sexual Orientation Not on file Last Filed Vital Signs Vital Sign Reading [...] Mass Index 29.76 01/02/2025 4:27 PM CDT Plan of Treatment Health Maintenance Due Date Last Done Comments Cervical Cancer Screening 2003 Depression Screening 2003 Hepatitis C Screening 2003 Meningococcal B Vaccine (1 o f 2 - Standard) 2019 Regular Well Visit/Exam 18-64 2021 DTaP/Tdap/Td Vaccine (7 - Td or Tdap) 12/02/2024 12/02/2014, 08/13/2008, 04/26/2004, Additional history exists Influenza Vaccine (#1) 2024 Hepatitis B Screening Completed 04/26/2004 , 2003, 2003 Pneumococcal vaccine <65 Completed 005, 2003, 2003 Varicella Vaccines Completed 08/13/2008, 04/26/2004 HPV Vaccines Completed 12/23/2018, 12/02/2014 Meningococcal Vaccine Completed 02/18/2021, 015 Procedures Procedure Name Priority Date/Time Associated Diagnosis Comments POCT RAPID STREP Routine 01/02/2025 4:28 PM CDT Exudative pharyngitis from Last 3 Months Results * POCT rapid strep A (01/02/2025 4:28 PM CDT) Rapid Strep A, POC Negative Negative Swab 01/02/2025 4:28 PM CDT Temitope Preston NP POINT OF CARE TEST ORDERAB LES Final Result from Last 3 Months Insurance [facility] Care Teams Die Sinking Machine Operator Relationship Specialty Start Date End Date Unknown, Notinfile PCP - General 10/07/23
[2025-01-03 11:57] VITALS: BP 109/66; PULSE 73; RESP 16; TEMP 37.2; O2SAT 99
--- OUTSIDE RECORDS SUMMARY | 2025-01-03 14:15 | XMS_ITS | Clinical Summary ---
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 Equinus deformity of both feet 02/27/2018 Pain in both feet 02/27/2018 Pes cavus 02/27/2018 Plantar fasciitis 02/27/2018 Immunizations Immunization Administration Dates Next Due DTaP 08/13/2008, 4,2003,05/21,2003 HPV, 9-Valent 12/23/2018,12/02/2014 Hepatitis B, Ped/Adolescent 04/26/2004, 4,2003 HiB 04/26/2004,2003,2003 IPV 08/13/2008, 5,06/14/2004,05/21,2003 MMR 08/13/2008,04/26/2004 Meningococcal Conjugate MCV4 P (Menactra) 02/18/2021,12/02/2014 Pneumococcal Conjugate PCV7 06/14/2004, 4,2003 Tdap 12/02/2014 Varicella (Chickenpox) 08/13/2008,04/26/2004 Family History Medical History Relation Name Comments High Blood Pressure Mother Thyroid Disease Mother Relation Name Status Comments Mother Social History Tobacco Use Types Packs/Day Years Used Date Smoking Tobacco: Never Smokeless Tobacco: Never Tobacco Cessation:Counseling Given: No Alcohol Use Standard Drinks/Week Comments No 0 (1 standard drink = 0.6 oz pur e alcohol) Alcohol Use Answer Date Recorded Frequency of Alcohol Consumption Not on file 10/14/2023 Average Number of Drinks Not on file 024 Frequency of Binge Drinking Not on file 09/28 Alcohol Use Status No 10/14/2023 Average alcohol consumption Not on file 09/28 Comments No Sex and Gender Information Value Date Recorded Sex Assigned at Not on file Legal Sex Female 11:27 AM CDT Gender Identity Not on file Sexual Orientation Not on file Last Filed Vital Signs Vital Sign Reading Time Taken Comments Blood Pressure 107/70 11/23/2021 11:54 PM CDT Pulse 78 11/23/2021 11:54 PM CDT Temperature 36.2 C (97.2 F) 11/23/2021 11:54 PM CDT Respiratory Rate 18 11/23/2021 11:54 PM CDT Oxygen Saturation 99% 11/23/2021 11:54 PM CDT Inhaled Oxygen Concentration - - Weight 68.5 kg (151 lb) 11/23/2021 10:52 PM CDT Height 160 cm (5' 3) 11/23/2021 10:52 PM CDT Body Mass Index 26.75 11/23/2021 10:52 PM CDT Plan of Treatment Health Maintenance Due Date Last Done Comments HIV Screening 2003 Hepatitis C Screening ages 18 to 79 once 2003 DEPRESSION SCREENING 2015 Meningococcal B Vaccine (1 of 2 - Standard) 2019 YEARLY WELLNESS EXAM 12/24/2019 12/23/2018, 02/13/2018, 12/02/2014 COVID-19 Immunization ( season) 2023 CERVICAL CANCER SCREENING 01/24/2024 Influenza Vaccine 11/28/2024 ADULT TETANUS 12/02/2024 12/02/2014 DTaP/Tdap/Td Vaccines (7 - Td or Tdap) 12/02/2024 12/02/2014, 08/13/2008, 04/26/2004, Additional history exists Zoster Vaccine (Recombinant Vaccine) (1 of 2) 2053 HEPATITIS B VACCINES Completed 04/26/2004, 2003, 2003 HIB VACCINES Completed 04/26/2004, 05/01, 2003 Pneumococcal Vaccine: Peds to 50 & At-Risk Patients Aged Out 06/14/2004, 2003, 2003 No longer eligible based on patient's age to complete this topic IPV VACCINES Completed 08/13/2008, 07/29, 06/14/2004, Additional history exists MMR VACCINES Completed 08/13/2008, 04/26/2004 Varicella Vaccine Completed 08/13/2008, 04/26/2004 HPV VACCINES Completed 12/23/2018, 12/02/2014 MENINGOCOCCAL VACCINE Completed 02/18/2021, 015 HEPATITIS A VACCINES Aged Out No long er eligible based on patient's age to complete this topic ROTAVIRUS VACCINES Aged Out No longer eligible based on patient's age to complete this topic Insurance [facility] Return [employer] [facility] Return [employer] Care Teams Insurance Claims Clerk Relationship Specialty Start Date End Date Gino Brown MD [address] [place] [address] PCP - General Family Medicine 12/02/14
--- OUTSIDE RECORDS SUMMARY | 2025-01-03 14:15 | XMS_ITS | Clinical Summary ---
Author Organization [address] Address [address] [place] [phone] Care Team Providers Care Funeral Service Manager Name Role Phone Unknown, Notinfile Primary Care [...] - 01/02/2025 11:59 PM CDT Hospital Encounter [address] [place] [address] [address] Exudative pharyngitis Discharge Disposition: Discharge to home or self care 01/02/2025 4:15 PM CDT Office Visit [facility] at [address] [phone] Temitope Preston NP Exudative pharyngitis [...] Final Result from Last 3 Months Insurance [facility] Care Teams Funeral Service Manager Relationship Specialty Start Date End Date Unknown, Notinfile PCP - General 10/07/23
--- NOTE | 2025-01-03 14:21 | ED.ALLEREA ---
HPI - Allergic Reaction General Chief complaint: Allergic Reaction Stated complaint: possible allergic rxn Time Seen by Provider: 01/03/25 14:06 Source: patient Mode of arrival: ambulatory Limitations: no limitations History of Present Illness HPI narrative: This is a 19-year-old female that presents emergency department for adverse reaction to azithromycin. Reports she started this today for strep throat. She had chest discomfort intermittently after taking this antibiotic. Reports she has had a similar reaction to this antibiotic in the past. No rashes, swelling. Related Data Allergies Allergy/AdvReac Type Severity Reaction Status Date / Time amoxicillin Allergy Hives Verified 01/22/24 13:41 cephalexin Allergy Hives Verified 01/22/24 13:41 Penicillins Allergy Hives Verified 01/22/24 13:41 Review of Systems Review of Systems: All systems reviewed & are unremarkable except as noted in HPI and below PMFSH Family History Family History Grandparent Myocardial infarct Hypothyroid Diabetes mellitus Bleeding disorder Social History Social History Smoking status: Never smoker Do You Feel Safe in your Home?: Yes Lack of Transportation: No Lack of Food: Never True Current Housing: I Have Housing Concerned About Future Housing: No Difficulty Paying Gas/Electric Bills: No Difficulty Paying for Meds: No Currently Unemployed: No Education: High School Diploma/GED Difficulty w/ Childcare or Family Care: No Spiritual care concerns: No Exam Narrative: GENERAL: Well-appearing, well-nourished, and in no acute distress. HEAD: Normocephalic, atraumatic. EYES: EOMI. ENT: Nares clear, no rhinorrhea or epistaxis. Mucous membranes moist. Oropharynx with symmetric tonsillar hypertrophy and exudate, no other lesions. NECK: Supple. No adenopathy or masses. CHEST: No respiratory distress. HEART: Regular rate EXTREMITIES: Normal range of motion. No edema. SKIN: Warm, dry, no rash. NEURO: No focal deficits. Alert and oriented x3. PSYCH: Normal mood and affect Course Vital Signs Vital signs: Vital Signs Temperature 98.9 F 01/03/25 11:57 Pulse Rate 73 01/03/25 11:57 Respiratory Rate 16 01/03/25 11:57 Blood Pressure 109/66 01/03/25 11:57 Pulse Oximetry 99 01/03/25 11:57 Oxygen Delivery Room Air 01/03/25 11:57 Temperature 98.9 F 01/03/25 11:57 Pulse Rate 73 01/03/25 11:57 Respiratory Rate 16 01/03/25 11:57 Blood Pressure 109/66 01/03/25 11:57 Pulse Oximetry 99 01/03/25 11:57 Oxygen Delivery Room Air 01/03/25 11:57 MDM - Allergic Reaction MDM Narrative Medical decision making narrative: Patient presents to the emergency department for possible adverse reaction to an antibiotic she is currently taking for strep throat. Will change to clindamycin. Instructed to have continued follow-up with her PCP Differential Diagnosis Differential diagnosis: Likely allergic reaction and adverse reaction to drug Critical Care Time Critical Care Time Critical Care Time: No Discharge Plan Discharge Clinical Impression: Pharyngitis Qualifiers: Pharyngitis/tonsillitis etiology: unspecified etiology Qualified Code(s): J02.9 - Acute pharyngitis, unspecified Patient Disposition: Home Condition: Stable Instructions: Antibiotic Form, Pharyngitis (ED) Additional Instructions: Return to the emergency department for worsening symptoms, or any other concerns Remain well-hydrated, get plenty of rest. Take Tylenol or Motrin [id number] for pain as needed. Take oral antibiotic as prescribed Follow up with your primary care doctor Patient Language: Polish Prescriptions: New clindamycin HCl [Cleocin HCl] 300 mg capsule 300 mg PO Q8H 10 Days Qty: 30 0RF No Action hydrocodone-acetaminophen 5-325 mg tablet 1 tablet PO Q6H PRN (Reason: pain) Qty: 20 0RF docusate sodium [Colace] 100 mg capsule 100 mg PO BID Qty: 20 0RF Follow-up/Referrals: PHYSICIAN,DISC RULER OPERATOR [Primary Care Provider, Internal Medicine]
[2025-01-03 14:33] VITALS: BP 109/54; PULSE 83; RESP 18; O2SAT 98
== END 2025-01-03 15:02 | disposition home or self-care (01) ==
PROVIDERS: Emergency Provider Physician Assistant
DX: J02.0 Streptococcal pharyngitis (principal)
CPT/HCPCS: 99283

== ENCOUNTER 2025-04-18 14:37 | Emergency (ER) | payer OTHER, SELFPAY ==
--- NOTE | ~2025-04-18 | XR_ITS ---
EXAMINATION: Abdomen series, supine and upright chest DATE: 04/18/2025 INDICATION: Abdominal pain TECHNIQUE: Supine and upright views of the abdomen and chest AP were obtained. COMPARISON: None. FINDINGS: No evidence of mechanical bowel obstruction. No free air under the diaphragm. Lung kuhn do not show acute findings. Alplaus of lungs are not included in the field. IMPRESSION: 1. No acute findings in the supine and upright views of abdomen and AP chest. Reviewed, dictated and finalized at location T. SSER APPRENTICE
[2025-04-18 14:49] VITALS: BP 129/73; PULSE 96; RESP 20; TEMP 36.4; O2SAT 100
--- NOTE | 2025-04-18 15:25 | ED_ITS ---
HPI - Abdominal Pain General Chief Complaint: Abdominal Pain Stated Complaint: Abdominal Pain Source: patient Mode of arrival: ambulatory Limitations: no limitations History of Present Illness HPI narrative: Patient presents for evaluation of abdominal pain. 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 she states that pain is intermittent, occurring every 15 minutes, described as cramping, lasting approximately 5 minutes, without identified any aggravating or alleviating factors. She states pain is severe, without numerical rating. She has had similar symptoms in the past and having a bowel movement usually helps alleviate her symptoms. She states those bowel movements are usually diarrhea. She has a fairly abnormal bowel pattern. She has had small solid bowel movements today. She also reports an epigastric burning sensation. She denies any urinary symptoms, fever, chills, and nausea without vomiting. Surgical history positive for appendectomy. LMP 04/09/25. She is sexually active with male partner, sometimes using condoms. No other contraceptive use. Related Data Allergies Allergy/AdvReac Type Severity Reaction Status Date / Time amoxicillin Allergy Hives Verified 04/18/25 15:07 cephalexin Allergy Hives Verified 04/18/25 15:07 Penicillins Allergy Hives Verified 04/18/25 15:07 Review of Systems Review of Systems: CONSTITUTIONAL: Denies fever, chills, or sweats. EYES: Denies visual changes, redness, or discharge. ENT: Denies rhinorrhea, congestion, sore throat, or otalgia. CARDIOVASCULAR: Denies chest pain, palpitations, or edema. RESPIRATORY: Denies cough or dyspnea. GASTROINTESTINAL: Reports abdominal pain and nausea. Denies diarrhea and vomiting. GENITOURINARY: Denies dysuria or hematuria. SKIN: Denies rash or itching. MUSCULOSKELETAL: Denies back pain, joint pain, or myalgia. NEUROLOGIC: Denies headache, numbness, dizziness, or weakness. PSYCHIATRIC: Denies anxiety or depression. [facility] Family History Family History Grandparent Myocardial infarct Hypothyroid Diabetes mellitus Bleeding disorder Social History Social History Smoking status: Never smoker Lack of Transportation: No Lack of Food: Never True Current Housing: I Have Housing Concerned About Future Housing: No Difficulty Paying Gas/Electric Bills: No Difficulty Paying for Meds: No Currently Unemployed: No Education: High School Diploma/GED Difficulty w/ Childcare or Family Care: No Spiritual care concerns: No Exam Narrative: GENERAL: Well-appearing, well-nourished, and in no acute distress. HEAD: Normocephalic, atraumatic. EYES: PERRLA and EOMI. ENT: Nares clear, no rhinorrhea or epistaxis. Mucous membranes moist. Oropharynx without tonsillar hypertrophy exudate or other lesions. Bilateral TMs pearly smith nonbulging NECK: Supple. No adenopathy or masses. No carotid bruits or JVD CHEST: Clear to auscultation. No respiratory distress. No wheezes rales or rhonchi HEART: Regular rate and rhythm. No murmur heard. Normal peripheral pulses. ABDOMEN: Soft, mild tenderness noted in epigastric region, nondistended, normal active bowel sounds. EXTREMITIES: Normal range of motion. No edema. SKIN: Warm, dry, no rash. NEURO: No focal deficits. Alert and oriented x3. PSYCH: Normal mood and affect. Course Course Emergency Course: This is a 20-year-old female who presented for evaluation of abdominal pain. X- ray without evidence of obstruction. She had a bowel movement while here and her pain improved. we discussed possibly going to the emergency department for further workup. She declined. I think this is reasonable given her pain has improved. Her symptoms seem consistent with IBS. Will dc with dicyclomine. If she has recurrent symptoms she should go to the ER. Otherwise, she should follow up with primary care provider. Pt in agreement with plan of care. Level of Care: Express Care Visit Vital Signs Vital signs: Vital Signs Temperature 36.4 C L 04/18/25 14:49 Pulse Rate 96 04/18/25 14:49 Respiratory Rate 20 04/18/25 14:49 Blood Pressure 129/73 04/18/25 14:49 Pulse Oximetry 100 04/18/25 14:49 Temperature 36.4 C L 04/18/25 14:49 Pulse Rate 96 04/18/25 14:49 Respiratory Rate 20 04/18/25 14:49 Blood Pressure 129/73 04/18/25 14:49 Pulse Oximetry 100 04/18/25 14:49 MDM Differential Diagnosis Differential Diagnosis: Fall obstruction versus gastroenteritis verses IBS versus other Lab Data Labs: Lab Results 12/20/25 Range/Units 15:20 POC Urine Color Yellow POC Urine Clarity Clear POC Urine pH 5.5 POC Ur Specif Sherwood 1.030 POC Urine Protein Negative (Negative) POC Ur Glucose (UA) Negative (Negative) POC Urine Ketones 2+ (Negative) POC Urine Blood Negative (Negative) POC Urine Nitrite Negative (Negative) POC Urine Bilirubin 1+ (Negative) POC Urine Urobilinogen 0.2 POC U Leukocyte Esteras Negative (Negative) POC Urine HCG, Qual Negative (Negative) Imaging Data Radiologist's impression: ITS Impressions Abdomen X-Ray 04/18/25 15:37 IMPRESSION: 1. No acute findings in the supine and upright views of abdomen and AP chest. Discharge Plan Discharge Clinical Impression: Abdominal cramping Patient Disposition: Home Condition: Stable Instructions: Antibiotic Form, Abdominal Pain (ED) Additional Instructions: IF YOU HAVE WORSENING ABDOMINAL PAIN, PLEASE GO TO THE ER Patient Language: Irish Prescriptions: New dicyclomine 10 mg capsule 10 mg PO TID Qty: 15 0RF Follow-up/Referrals: Jaziel Holden MD [Physician, Family Practice] Time of Disposition: 15:58
[2025-04-18 15:39] LABS: BEDSIDEPREGUCG Negative (Negative)
[2025-04-18 15:41] LABS: EDUAAPPEAR Clear; EDUABILI 1+ (Negative); EDUABLOOD Negative (Negative); EDUACOLOR1 Yellow; EDUAGLUCOSE Negative (Negative); EDUAKETONE 2+ (Negative); EDUALEUKO Negative (Negative); EDUANITRATE Negative (Negative); EDUAPH 5.5; EDUAPROTEIN Negative (Negative); EDUASPGRAVITY 1.030; EDUAUROBILI 0.2
== END 2025-04-18 16:17 | disposition home or self-care (01) ==
PROVIDERS: Emergency Provider Nurse Practitioner
DX: R10.9 Unspecified abdominal pain (principal); R10.13 Epigastric pain
CPT/HCPCS: 74019; 81003; 81025; 99213; G0463